=== PATIENT | female | born 1975 | race Caucasian/White ===

== ENCOUNTER 2017-03-08 06:04 | Day surgery (SDC) | payer MEDICAID, OTHER ==
[~2017-03-08] VITALS: Ht 157.5 cm; Wt 63.0 kg
[2017-03-08] VITALS (17 sets, daily range): BP systolic 80–134; BP diastolic 55–92; PULSE 50–74; RESP 8–20; Ht 157.5 cm; Wt 63.0 kg
[2017-03-08] MEDS ORDERED: LISI20TA11 PO (06:55)
--- NOTE | 2017-03-08 06:56 | RADRPT ---
PROCEDURE: Chest. CLINICAL INDICATION: Preop evaluation. TECHNIQUE: Single frontal view of the chest was obtained. COMPARISON: None. FINDINGS: The cardiac silhouette is within normal limits. The aortic arch is unremarkable. There is no focal consolidation, vascular congestion or pleural effusion. There is no pneumothorax. IMPRESSION: No evidence for active cardiopulmonary disease. .Casper Harman MD, MD Date Time Electronically viewed and signed by .Casper Harman MD, on 03/08/2017 06:55 .T/
[2017-03-08] MEDS ORDERED: LIDOCAINE 2% (SDV) 5 ML INJ ONE (07:34)
[2017-03-08] MEDS ORDERED: FENTAnyl 50 MCG/ML VIAL ONE (07:34)
[2017-03-08] MEDS ORDERED: MIDAZOLAM 1 MG/ML 2 ML INJ ONE (07:34)
[2017-03-08] MEDS ORDERED: PROPOFOL 20 ML ONE (07:34)
[2017-03-08] MEDS ORDERED: CEFAZOLIN 1 GM INJ ONE (07:50)
[2017-03-08] MEDS ORDERED: METOCLOPRAMIDE 10 MG INJ ONE (07:51)
[2017-03-08] MEDS ORDERED: ONDANSETRON 4 MG INJ ONE (07:51)
[2017-03-08] MEDS ORDERED: ACETAMINOPHEN 1000MG/100ML IV 100 ML ONE (07:53)
[2017-03-08] MEDS ORDERED: KETOROLAC 30 MG INJ ONE (08:00)
[2017-03-08] MEDS ORDERED: oxyCODONE 5 MG TAB PO PRN (08:30)
[2017-03-08] MEDS ORDERED: MEPERIDINE 25 MG INJ IV PRN (08:30)
[2017-03-08] MEDS ORDERED: FENTAnyl 50 MCG/ML VIAL IV PRN (08:30)
[2017-03-08] MEDS ORDERED: PROCHLORPERAZINE 10 MG INJ IV PRN (08:30)
[2017-03-08] MEDS ORDERED: hydrALAzine 20 MG INJ IV PRN (08:30)
[2017-03-08] MEDS ORDERED: LABETALOL HCL 20MG INJ IV PRN (08:30)
[2017-03-08] MEDS ORDERED: DIPHENHYDRAMINE 50 MG INJ IV PRN (08:30)
[2017-03-08] MEDS ORDERED: ONDANSETRON 4 MG INJ IV PRN (08:30)
[2017-03-08] MEDS ORDERED: HYDROmorphONE (0.2 MG/ML) 10ML SYG IV PRN ×2 (08:30)
--- NOTE | 2017-03-08 09:21 | OPR ---
Date/Time of Note Date/Time of Note DATE: 03/08/17 TIME: 09:18 Operative Report Free Text/Dictation DATE OF OPERATION: 03/08/2017 PREOPERATIVE DIAGNOSIS: Menometrorrhagia, Endometrial polyp causing vaginal bleeding. POSTOPERATIVE DIAGNOSIS: same OPERATION PERFORMED: Hysteroscopy, Hysteroscopic polypectomy and myomectomy, Hydrothermal Endometrial Ablation SURGEON: Roshni Steele MD ANESTHESIA: General. COMPLICATIONS: None. OPERATIVE FINDINGS AT SURGERY: 2 endometrial polyps and one submucosal myoma CONSENT: Please see preoperative notes from my office for the consent process. DESCRIPTION OF PROCEDURE: She was taken to the operating room and general anesthesia was induced. She was prepped and draped in the usual sterile fashion. Surgical time out was done. The patient and procedure were identified. The anterior lip of the cervix was grasped with a single-tooth tenaculum and dilated to size 6 Hegar dilators. The hysteroscope Symphion was inserted and the endometrial cavity was visualized clearly. At this time the resectoscope was inserted and the endometrial polyp and submucosal myoma were resected completely with excellent visualization. The resectoscope was removed and the HTA camera inserted. Extra Tenaculum was applied to cervix. Seal check was done and passed. Ablation initiated. there was no fluid loss and ablation was not interrupted. Cooling period was done. The endometrium turned white. Camera was removed. The tenaculum was removed and there was no bleeding from the tenaculum site. The patient tolerated the procedure well. ROSHNI STEELE MD Mar 08, 2017 09:21
--- NOTE | 2017-03-09 18:56 | RADRPT ---
Vent Rate: 62 bpm RR Interval: 0 msec AR Interval: 190 msec QRS Duration: 84 msec QT Interval: 412 msec QTC Interval: 418 msec P-R-T [place]: 58 - 0 - 43 degrees Normal sinus rhythm Cannot rule out Anterior infarct , age undetermined Abnormal ECG Electronically Signed By: Demetrio Ramos [id number]
== END 2017-03-08 12:15 | disposition home or self-care (01) ==
LOC: SDS 06:04
PROVIDERS: ATTEND Specialist
DX: N84.0 Polyp of corpus uteri (principal); D25.0 Submucous leiomyoma of uterus; N92.1 Excessive and frequent menstruation with irregular cycle; I10 Essential (primary) hypertension
CPT/HCPCS: 58561; 71010; 93005; J0131; J0690; J1170; J1885; J2250; J2405; J2765; J3010; Z7512; Z7610; 88305

== ENCOUNTER 2017-11-22 17:49 | Emergency (ER) | END 2017-11-22 22:40 | disposition home or self-care (01) ==